=== PATIENT | female | born 1980 | race Caucasian/White ===

== ENCOUNTER 2019-01-02 20:55 | Emergency (ER) | payer OTHER ==
[~2019-01-02] VITALS: Ht 160 cm; Wt 127.0 kg
[~2019-01-02 20:55] MED LIST: ALEVE220 MG PO; ANAPROX DS550 MG PO; BIAXIN500 MG PO; CLARITIN10 MG PO; DARVOCET N 1001 TAB PO; FEOSOL45 MG PO; HYDROCODONE BIT1 T11 PO; NYST SUSP PO; PRENATAL1 TA3 PO; PROVENTIL0.09 MG/AC IH; TRIMOX500 MG PO; TYLENOL W/CODEI1 TA2 PO; VIBRAMYCIN100 MG PO
[2019-01-02 20:58] VITALS: BP 141/84
[2019-01-02] MEDS ORDERED: TYLENOL WITH C1 EACH PO (23:57)
== END 2019-01-03 00:11 | disposition home or self-care (01) ==
LOC: ED 20:55
DX: S16.1XXA Strain of muscle, fascia and tendon at neck level, initial encounter (principal); S29.012A Strain of muscle and tendon of back wall of thorax, initial encounter; Z88.2 Allergy status to sulfonamides; Z79.899 Other long term (current) drug therapy; V43.62XA Car passenger injured in collision with other type car in traffic accident, initial encounter; Y93.89 Activity, other specified; Y92.488 Other paved roadways as the place of occurrence of the external cause; Y99.8 Other external cause status

== ENCOUNTER 2019-03-18 17:10 | Inpatient (IN) | payer SELFPAY ==
[~2019-03-18] VITALS: Ht 160 cm; Wt 148.9 kg
[~2019-03-18 17:10] MED LIST changes: +TYLENOL WITH C1 EACH PO
[2019-03-18 17:11] VITALS: BP 157/95
[2019-03-18 19:27] LABS: BASO # 0.1 10*3/uL (0.0-0.1); BASO % 0.6 % (0.0-1.0); EOS # 0.1 10*3/uL (0.0-0.4); HEMATOCRIT 39.8 % (37.0-47.0); HEMOGLOBIN 12.7 g/dl (12.0-16.0); LYMPH % 24.1 % (27.0-41.0); MEAN CELL VOLUME 84.9 fl (81.0-99.0); MEAN CORPUSCULAR HGB 27.1 pg (27.0-31.0); MEAN CORPUSCULAR HGB CONC 31.9 g/dl (33.0-37.0); MEAN PLATELET VOLUME 9.5 fl (9.6-12.3); MONO # 0.5 10*3/uL (0.1-1.0); MONO % 4.2 % (3.0-9.0); NEUT # 8.7 10*3/uL (2.3-7.9); NEUT % 69.7 % (47.0-73.0); PLATELET COUNT AUTOMATED 466 10*3/uL (130-400); RED BLOOD COUNT 4.69 10*6/uL (4.10-5.10); RED CELL DISTRI WIDTH 14.7 % (0-14.5); WHITE BLOOD COUNT 12.5 10*3/uL (4.8-10.8)
[2019-03-18 19:42] LABS: ALBUMIN 3.8 gm/dl (3.1-4.5); ALKALINE PHOSPHATASE 81 U/L (45-117); BUN 9 mg/dl (7-24); CHLORIDE 107 mmol/L (98-107); CREATININE 0.75 mg/dL (0.55-1.02); POTASSIUM 3.7 mmol/L (3.5-5.1); SGOT/AST 24 IU/L (3-35); SGPT/ALT 34 U/L (12-78); SODIUM 139 mmol/L (136-145); TOTAL PROTEIN 8.8 gm/dL (6.4-8.2)
[2019-03-19] VITALS (7 sets, daily range): BP systolic 116–157; BP diastolic 54–95
--- NOTE | 2019-03-19 00:32 | NUR ---
PATIENT QUIETLY WATCHING TV. NO COMPLAINTS AT THIS TIME. STATES SHE IS FEELING A LOT BETTER. PROVIDED WITH BLANKET, PILLOW, DIMMED LIGHTS, AND CLOSED THE DOOR FOR PT COMFORT AN DPRIVACY AND TO FACILLITATE SLEEP.
--- NOTE | 2019-03-19 02:47 | NUR ---
ADMITTING NURSE AT BEDSIDE FOR ADMISSION CHARTING. MEDICATED PER EMAR. PT IS A&OX3. RESP EASY AND NONLABORED ON ROOM AIR. CALL LIGHT IN REACH.
[2019-03-19 05:33] LABS: BASO # 0.1 10*3/uL (0.0-0.1); BASO % 0.5 % (0.0-1.0); EOS # 0.2 10*3/uL (0.0-0.4); EOS % 1.5 % (1.0-4.0); HEMATOCRIT 37.1 % (37.0-47.0); HEMOGLOBIN 11.7 g/dl (12.0-16.0); LYMPH # 2.8 10*3/uL (1.3-4.4); LYMPH % 27.4 % (27.0-41.0); MEAN CELL VOLUME 86.1 fl (81.0-99.0); MEAN CORPUSCULAR HGB 27.1 pg (27.0-31.0); MEAN CORPUSCULAR HGB CONC 31.5 g/dl (33.0-37.0); MEAN PLATELET VOLUME 9.5 fl (9.6-12.3); MONO # 0.7 10*3/uL (0.1-1.0); MONO % 6.5 % (3.0-9.0); NEUT # 6.5 10*3/uL (2.3-7.9); NEUT % 63.8 % (47.0-73.0); PLATELET COUNT AUTOMATED 410 10*3/uL (130-400); RED BLOOD COUNT 4.31 10*6/uL (4.10-5.10); RED CELL DISTRI WIDTH 14.8 % (0-14.5); WHITE BLOOD COUNT 10.2 10*3/uL (4.8-10.8)
[2019-03-19 05:51] LABS: BUN 12 mg/dl (7-24); CHLORIDE 110 mmol/L (98-107); CHOLESTEROL 198 mg/dL (<200); CREATININE 0.92 mg/dL (0.55-1.02); HDL CHOLESTEROL 60 mg/dl (40-60); LDL CHOLESTEROL 123 mg/dL (9-159); PHOSPHOROUS 3.7 mg/dL (2.5-4.9); POTASSIUM 3.5 mmol/L (3.5-5.1); SODIUM 141 mmol/L (136-145); TRIGLYCERIDES 76 mg/dl (<150); VLDL CHOLESTEROL 15 mg/dL (6-40)
--- NOTE | 2019-03-19 06:16 | NUR ---
PT RESTING QUIETLY WITH EYES CLOSED. EASILY AWAKENED. NO COMPLAINTS AT THIS TIME. IVF INFUSING PER ORDERS. CALL GARETT MOON. VS OBTAINED.
--- NOTE | 2019-03-19 06:32 | NUR ---
DIETARY NOTIFIED OF PT REQUEST FOR RUNNING TRAY FOR BREAKFAST. TO BE DELIVERED AROUND [id number].
--- NOTE | 2019-03-19 07:11 | NUR ---
REPORT FROM TATY WARREN AT THIS TIME.
[2019-03-19 07:37] LABS: VITAMIN D, 25-HYDROXY 16.6 ng/mL (30-100)
--- NOTE | 2019-03-19 08:10 | NUR ---
PT PROVIDED BREAKFAST TRAY. NO DISTRESS OR COMPLAINTS OFFERED.
--- NOTE | 2019-03-19 11:06 | NUR ---
ROOM ASSIGNED TO PATIENT TAKING PATIENT TO FLOOR AT THIS TIME. JOCELYN WARREN NOTIFIED OF PATIENT COMING TO FLOOR.
--- NOTE | 2019-03-19 11:26 | NUR ---
[facility] , under the services of SEEMA Godinez DO with a diagnosis of CELLULITIS. Chief complaint is ITCHING. Patient arrived via bed from ER. Monitor applied. Initial assessment completed. Vital signs taken and recorded. SEEMA GODINEZ DO notified of admission to the unit. Orders received. See assessment for past medical history, medications and allergies. Patient and/or family oriented to unit. [facility]. Clothing/patient valuable form completed. JOCELYN PAPPAS
--- NOTE | 2019-03-19 13:00 | NUR ---
DR ANDINO RETURNED CALL REGARDING CONSULT, STATES SHE WILL SEE PT LATER TODAY.
--- NOTE | 2019-03-19 19:10 | NUR ---
ARRIVED ON SHIFT, INTRODUCED TO PATIENT, NO NEEDS VOICED AT THIS TIME,. WHITEBOARD UPDATED.
--- NOTE | 2019-03-19 23:04 | NUR ---
24 HR chart check completed.
[2019-03-20] VITALS: BP 115/69
--- NOTE | 2019-03-20 02:00 | NUR ---
Patient sleeping. Respirations relaxed and easy. Siderails up x 2. Wheellocks on, bed in low position call light within reach. ELAINE VEE
[2019-03-20 06:36] LABS: BASO # 0.1 10*3/uL (0.0-0.1); BASO % 0.5 % (0.0-1.0); EOS # 0.4 10*3/uL (0.0-0.4); EOS % 3.3 % (1.0-4.0); HEMATOCRIT 34.8 % (37.0-47.0); HEMOGLOBIN 11.2 g/dl (12.0-16.0); LYMPH # 3.3 10*3/uL (1.3-4.4); LYMPH % 26.1 % (27.0-41.0); MEAN CELL VOLUME 83.9 fl (81.0-99.0); MEAN CORPUSCULAR HGB CONC 32.2 g/dl (33.0-37.0); MEAN PLATELET VOLUME 9.7 fl (9.6-12.3); MONO # 0.7 10*3/uL (0.1-1.0); MONO % 5.5 % (3.0-9.0); NEUT % 64.1 % (47.0-73.0); NUCLEATED RED BLOOD CELL 0.2 % (0.0-0.0); PLATELET COUNT AUTOMATED 388 10*3/uL (130-400); RED BLOOD COUNT 4.15 10*6/uL (4.10-5.10); RED CELL DISTRI WIDTH 14.8 % (0-14.5); WHITE BLOOD COUNT 12.5 10*3/uL (4.8-10.8)
--- NOTE | 2019-03-20 07:53 | NUR ---
24 HR chart check completed.
[2019-03-20 08:00] VITALS: BP 128/72
--- NOTE | 2019-03-20 09:20 | NUR ---
DR GRIMES AND RESIDENTS HERE TO ASSESS PATIENT AND DISCUSS PLAN OF CARE
--- NOTE | 2019-03-20 10:00 | NUR ---
RESTING IN BED WITH NO DISTRESS NOTED. CRUSTY DRAINAGE NOTED TO RIGHT CHEEK. RIGHT CHEEK REMAINS RED AND EDEMATOUS, PATIENT STATES IMPROVED. RESPIRATIONS EASY. LUNGS CLEAR. PULSE OX 98% RA. CALL LIGHT WITHIN REACH. NO VOICED COMPLAINTS
[2019-03-20 12:00] VITALS: BP 132/80
--- NOTE | 2019-03-20 13:15 | NUR ---
VISITING WITH . NO DISTRESS NOTED. CALL LIGHT WITHIN REACH. NO VOICED COMPLAINTS
[2019-03-20 16:00] VITALS: BP 152/82
--- NOTE | 2019-03-20 17:16 | NUR ---
RESTING IN BED WITH NO ACUTE DISTRESS NOTED. AND FRIEND PRESENT AT BEDSIDE. REQUESTED AND RECEIVED TYLENOL PER PRN ORDER FOR COMPLAINTS OF RIGHT CHEEK SWELLING/DISCOMFORT. ALSO PROVIDED WITH ICE PACK. CALL LIGHT WITHIN REACH. WILL MONITOR FOR EFFECTIVENESS
[2019-03-20 20:00] VITALS: BP 141/84
--- NOTE | 2019-03-20 20:17 | NUR ---
PT UP TO RESTROOM. FAMILY AT BEDSIDE. WILL MONITOR.
[2019-03-21] VITALS: BP 132/75
--- NOTE | 2019-03-21 04:35 | NUR ---
PT ASLEEP IN BED, EASILY AROUSABLE. DENIES ANY NEEDS AT THIS TIME. WILL MONITOR. CALL LIGHT IN REACH.
[2019-03-21 06:18] LABS: BASO # 0.1 10*3/uL (0.0-0.1); BASO % 0.5 % (0.0-1.0); EOS # 0.5 10*3/uL (0.0-0.4); HEMATOCRIT 33.6 % (37.0-47.0); HEMOGLOBIN 10.6 g/dl (12.0-16.0); LYMPH # 3.6 10*3/uL (1.3-4.4); LYMPH % 30.5 % (27.0-41.0); MEAN CELL VOLUME 84.4 fl (81.0-99.0); MEAN CORPUSCULAR HGB 26.6 pg (27.0-31.0); MEAN CORPUSCULAR HGB CONC 31.5 g/dl (33.0-37.0); MEAN PLATELET VOLUME 9.7 fl (9.6-12.3); MONO # 0.6 10*3/uL (0.1-1.0); MONO % 5.2 % (3.0-9.0); NEUT % 59.4 % (47.0-73.0); PLATELET COUNT AUTOMATED 389 10*3/uL (130-400); RED BLOOD COUNT 3.98 10*6/uL (4.10-5.10); RED CELL DISTRI WIDTH 14.6 % (0-14.5); WHITE BLOOD COUNT 11.8 10*3/uL (4.8-10.8)
[2019-03-21 07:45] VITALS: BP 132/82
--- NOTE | 2019-03-21 07:45 | NUR ---
ASSESSMENT COMPLETED AND DOCUMENTED. PT AWAKE, IN BED. PT STATES HER R CHEEK IS LOOKING BETTER, DENIES ANY PAIN AT THIS TIME. KENA SHEA SPNR[facility]
--- NOTE | 2019-03-21 07:58 | NUR ---
PATIENT RESTING QUIETLY IN BED. NO DISTRESS NOTED. RESPIRATIONS EASY, REGULAR ON RA. PATIENT STATES SWELLING HAS DECREASED TO RIGHT SIDE OF FACE. DRY PATCH NOTED TO RIGHT CHEEK WITH CRUSTED SURFACE. NO DRAINAGE NOTED. WILL CONTINUE TO MONITOR. PT EAGER TO GO HOME. NO VOICED COMPLAINTS. CALL LIGHT WITHIN REACH.
--- NOTE | 2019-03-21 09:00 | NUR ---
Insole Coverer in to talk to patient. Patient states lives at home with and son. There are few steps in the home. Physician: none at present Pharmacy: [facility] Home health services: none Patient's level of ADLs: INDEPENDENT Patient has working utilities: all working DME: none Follow-up physician's appointment after d/c: will be made by hospitalist nurse director with doctor of patient's choice Does patient want to access PORTAL?: no Discharge plan discussed with patient, she states she lives at home with her son and , she is independent in adls and ambulation she states she will return home when medically stable, discussed with her not having any insurance. and being able to afford her medications if needed. she stated she gets any medication she needs filled at [facility] and she will be able to afford them, also educated her that case management has contacted Shraddha from [employer] and she will be talking with her today regarding filling out paperwork to help with the hospital stay, patient denies any other needs at this time. ELLY MORRIS
--- NOTE | 2019-03-21 10:00 | NUR ---
PT AWAKE IN BED. PLEASENT WITH NO COMPLAINTS AT THIS TIME. KENA SHEA SP[facility]
[2019-03-21 12:00] VITALS: BP 150/83
--- NOTE | 2019-03-21 12:00 | NUR ---
Nutritional Support Services Note: Pt with Dx of preseptal cellulitis of right eye, sepsis and obesity. Ht.5'3 Wt.329#. She states she has been on a weight loss diet, eating healthy and has lost 100# in the past year. Discussed with pt proper portion sizes, healthy eating, exercise and proper calories. Pt listened, diet copy given to her. Encouraged continued good intake of meals, and weight loss. Encouraged follow up if needed. No other nutrition intervention needed at this time. [employer] [facility]
--- NOTE | 2019-03-21 12:00 | NUR ---
ASSESSMENT COMPLETED AND DOCUMENTED. PT STATES HER R CHEEK WAS ITCHY, SHE HAS A WASHCLOTH & ICE PACK TO APPLY WHEN NEEDED. PT CURRENTLY EATING LUNCH. PT DENIES ANY OTHER COMPLAINTS AT THIS TIME. KENA VANCE
--- NOTE | 2019-03-21 13:30 | NUR ---
PT AWAKE, WATCHING TV. NO COMPLAINTS AT THIS TIME. REPORT GIVEN TO JENNA. KENA SHEA [facility]
[2019-03-21] MEDS ORDERED: CEPHALEXIN500 M1 PO (13:37)
[2019-03-21] MEDS ORDERED: CLEOCIN HCL150 MG PO (13:37)
[2019-03-21 16:00] VITALS: BP 139/71
--- NOTE | 2019-03-21 17:41 | NUR ---
Discharge instructions reviewed with patient/family. Patient receptive and verbalizes understanding. Follow-up care arranged. Written instructions given to patient/family. DIANNE ACOSTA.
== END 2019-03-21 18:08 | disposition home or self-care (01) | DRG 872 ==
LOC: ED 17:10 → 4E 21:16 → EDHOLD 21:16 → 4E 03-19 10:46
PROVIDERS: Family Medicine; Internal Medicine; Physician Assistant; ADMIT Emergency Medicine
DX: A41.9 Sepsis, unspecified organism (principal); L03.213 Periorbital cellulitis; Z68.42 Body mass index [BMI] 45.0-49.9, adult; E66.01 Morbid (severe) obesity due to excess calories; D47.3 Essential (hemorrhagic) thrombocythemia; E55.9 Vitamin D deficiency, unspecified; L71.9 Rosacea, unspecified; E87.8 Other disorders of electrolyte and fluid balance, not elsewhere classified; L01.00 Impetigo, unspecified; Z88.2 Allergy status to sulfonamides; Z85.43 Personal history of malignant neoplasm of ovary; Z85.89 Personal history of malignant neoplasm of other organs and systems; Z90.49 Acquired absence of other specified parts of digestive tract; Z98.51 Tubal ligation status; Z82.49 Family history of ischemic heart disease and other diseases of the circulatory system; Z80.8 Family history of malignant neoplasm of other organs or systems; Z90.710 Acquired absence of both cervix and uterus; Z90.721 Acquired absence of ovaries, unilateral; Z82.1 Family history of blindness and visual loss

== ENCOUNTER → 2019-04-12 | Outpatient (CLI) | payer SELFPAY ==
[~2019-04-12] MED LIST changes: +CEPHALEXIN500 M1 PO; +CLEOCIN HCL150 MG PO
== END | disposition home or self-care (01) ==
LOC: RESCLI 02:27
DX: J02.9 Acute pharyngitis, unspecified (principal); L03.213 Periorbital cellulitis; Z90.710 Acquired absence of both cervix and uterus; Z90.89 Acquired absence of other organs; Z88.2 Allergy status to sulfonamides